=== PATIENT | female | born 1990 | race Caucasian/White ===

== ENCOUNTER 2020-04-26 09:04 | Outpatient (CLI) | payer OTHER, SELFPAY ==
[2020-04-26 10:10] LABS: Free T4 Free Thyroxine 1.01 ng/mL (0.78-2.19)
== END 2020-04-26 09:05 | disposition home or self-care (01) ==
PROVIDERS: PCP Nurse Practitioner Family; Visit Provider Internal Medicine Cardiovascular Disease
DX: Z86.19 Personal history of other infectious and parasitic diseases (principal); R00.0 Tachycardia, unspecified; I34.1 Nonrheumatic mitral (valve) prolapse
CPT/HCPCS: 36415; 84439